=== PATIENT | female | born 1995 | race African-American/Black ===

== ENCOUNTER 2021-12-27 05:43 | Emergency (ER) | payer MEDICAID ==
[~2021-12-27] VITALS: Ht 162.6 cm; Wt 75.0 kg
[2021-12-27] MEDS ORDERED: ONDANSETRON HCL 4MG/2ML INJ IV STA (05:55)
[2021-12-27] MEDS ORDERED: MORPHINE SULFATE 4 MG/ML CPJ (NOT FOR IM USE) IV STA (05:55)
[2021-12-27 06:30] LABS: CHLORIDE 107 mEq/L (98-107)
[2021-12-27 06:32] LABS: BASOPHILS % 0.1 % (0.0-2.0); EOSINOPHILS % 4.8 % (0.0-5.0); HEMATOCRIT. 41.3 % (36.0-48.0); HEMOGLOBIN. 13.8 g/dL (12.0-16.0); LYMPHOCYTES % 50.3 % (20.0-50.0); MEAN CORPUSCULAR HEMOGLOBIN 27.5 pg (28.0-32.0); MEAN CORPUSCULAR VOLUME 82.2 fL (81.0-99.0); MEAN PLATELET VOLUME 8.1 fl (7.4-10.4); MONOCYTES % 7.2 % (2.0-8.0); NEUTROPHILS % 37.6 % (40.0-76.0); PLATELET 237 x1000/uL (130-400); RED BLOOD CELL COUNT 5.03 mill/uL (4.2-5.4); RED CELL DISTRIBUTION WIDTH 13.6 % (11.6-14.6)
[2021-12-27 06:37] LABS: HCG SCREEN NEGATIVE
[2021-12-27 07:03] LABS: PROTHROMBIN TIME 10.5 sec (9.6-11.0)
[2021-12-27 08:16] LABS: CLARITY URINE CLEAR (CLEAR); COLOR URINE YELLOW (YELLOW); KETONES URINE NEGATIVE (NEGATIVE); LEUKOCYTE ESTERASE URINE TRACE (NEGATIVE); NITRITE URINE NEGATIVE (NEGATIVE); OCCULT BLOOD URINE NEGATIVE (NEGATIVE); PROTEIN URINE 1+ (NEGATIVE); SPECIFIC GRAVITY URINE 1.017 (1.005-1.030); UROBILINOGEN URINE 0.2 E.U./dL (0.2-1.0)
[2021-12-27] MEDS ORDERED: FLUT9.9S BOTHNSTRLS (08:52)
[2021-12-27] MEDS ORDERED: NITR100C PO (08:52)
[2021-12-27] MEDS ORDERED: TOPUD PO (08:53)
[2021-12-27 09:47] VITALS: BP 107/64
== END 2021-12-27 09:48 | disposition home or self-care (01) ==
LOC: ER 08:06
DX: N39.0 Urinary tract infection, site not specified (principal); R09.81 Nasal congestion
CPT/HCPCS: 36415; 76830; 76856; 80053; 81003; 83690; 84703; 85025; 85610; 93005; 96374; 96375; 99285; J2270; J2405